=== PATIENT | female | born 1965 | race Caucasian/White ===

== ENCOUNTER 2017-10-14 14:00 | Emergency (ER) | payer OTHER ==
[2017-10-14 14:15] VITALS: BP 134/100; PULSE 95; O2SAT 98
[2017-10-14] MEDS ORDERED: BACIGUENT PACKET TP ONE (14:23)
[2017-10-14] MEDS ORDERED: TYLENOL 325 MG PO ONE (14:23)
[2017-10-14] MEDS ORDERED: Adacel Vial IM ONE ×2 (14:23→14:27)
[2017-10-14] MEDS ORDERED: TYLENOL 325 MG ONE (14:26)
[2017-10-14] MEDS ORDERED: BACIGUENT PACKET ONE (14:27)
--- NOTE | 2017-10-14 14:30 | ERPHSYRPT ---
- History of Present Illness Time Seen by Provider: 10/14/17 14:19 Source: patient Exam Limitations: no limitations Patient Subjective Stated Complaint: hit head on a shelf Triage Nursing Assessment: C/o laceration to top of scalp. pt has superficial laceration noted to right top of scalp. bleeding under control at this time Physician History: 51-year-old white female arrives with complaint of a head contusion and abrasion to her scalp since approximately 2:00 this afternoon. 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 She did not have any loss of consciousness she did feel nauseous for a short period of time she states she is feeling better now has some localized pain.. She denies any neck pain Past medical history leg swelling. Past surgical history includes tubal ligation D&C and LEEP procedure. Occurred: just prior to arrival Severity: mild Head Injury Location: parietal (top of the head anteriorly right side) Loss of Consciousness: no loss of consciousness Associated Symptoms: nausea (brief nausea), No vomiting, No abdominal pain, No shortness of breath, No heartburn, No diaphoresis, No cough, No chills, No chest pain, No fever, No headaches, No loss of appetite, No malaise, No rash, No syncope, No seizure, No weakness Allergies/Adverse Reactions: No Known Drug Allergies Allergy (Verified 03/10/16 06:40) Home Medications: No Reportable Medications [No Reported Medications] 05/02/13 [History] Hx Tetanus, Diphtheria Vaccination/Date Given: No Hx Influenza Vaccination/Date Given: Yes Hx Pneumococcal Vaccination/Date Given: No - Review of Systems Constitutional: No Fever, No Chills Eyes: No Symptoms, No Discharge, No Eye Pain, No Eye Redness, No Photophobia, No Tearing, No Vision Changes, No Double Vision, No Foreign Body Sensation Ears, Nose, & Throat: No Symptoms Respiratory: No Cough, No Dyspnea Cardiac: No Chest Pain, No Edema, No Syncope Abdominal/Gastrointestinal: No Abdominal Pain, No Nausea, No Vomiting, No Diarrhea Genitourinary Symptoms: No Dysuria Musculoskeletal: No Back Pain, No Neck Pain Skin: Other (1 cm abrasion scalp top of head right anterior) Neurological: Other (localized pain), No Dizziness, No Focal Weakness, No Gait Changes, No Headache, No Irritability, No Lethargy, No Paralysis, No Parasthesia , No Seizure, No Sensory Changes, No Speech Changes, No Tics, No Tremors, No Vertigo Psychological: No Symptoms Endocrine: No Symptoms All Other Systems: Reviewed and Negative - Past Medical History Pertinent Past Medical History: No Other Medical History: some swelling in legs - Past Surgical History Past Surgical History: Yes Neuro Surgical History: No Pertinent History Cardiac: No Pertinent History Respiratory: No Pertinent History Female Surgical History: Section, Tubal Ligation, Other Other Surgical History: LEEP and d&c - Social History Smoking Status: Former smoker How long have you smoked: 20yrs Exposure to second hand smoke: No Drug Use: none Patient Lives Alone: No - Female History Hx Now: No - Nursing Vital Signs Nursing Vital Signs: Initial Vital Signs Temperature 98.4 F 10/14/17 14:07 Pulse Rate 95 H 10/14/17 14:07 Respiratory Rate 18 10/14/17 14:07 Blood Pressure 134/100 10/14/17 14:07 O2 Sat by Pulse Oximetry 98 10/14/17 14:07 Pain Scale Pain Intensity 1 - [place] Coma Score Best Eye Response ([place]): (4) open spontaneously Best Verbal Response ([place]): (5) oriented Best Motor Response ([place]): (6) obeys commands [place] Total: 15 - Physical Exam General Appearance: mild distress, alert, other (well-developed female alert oriented x3 pleasant and cooperative to examination), No anxiety Head Injury: tenderness (localized tenderness top of scalp right anterior 1 cm abrasion overlying area) Eye Exam: bilateral eye: normal inspection, PERRL, EOMI ENT Exam: airway nml, No evidence of ENT injury, No dental injury Neck Exam: supple, full range of motion, other (no neck tenderness) Cardiovascular/Respiratory Exam: chest non-tender, normal breath sounds, regular rate/rhythm Gastrointestinal/Abdominal Exam: soft, non tender, no distention Back Exam: normal inspection, No vertebral tenderness Extremity Exam: non-tender, normal range of motion, normal inspection Mental Status Exam: alert, 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, 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 Exam: normal hearing, normal speech, PERRL, No abnormal eye position, No abnormal gag reflex, No abnormal pupil position, No abnormal speech, No facial asymmetry, No facial droop, No facial paresthesias, No facial weakness, No gaze palsy, No hearing deficit (R), No hearing deficit (L) Coordination/Gait Exam: normal finger to nose, normal gait, normal cerebellar function (continue finger noted finger to nose.), No ABN nose to finger (R), No ABN nose to finger (L) Motor/Sensory Exam: no motor deficit, no sensory deficit, CN II-XII intact DTR Exam: ankle (R): 2+, ankle (L): 2+ Skin Exam: normal color, warm, dry, No rash SpO2 Interpretation: normal (98%) SpO2: 98 Oxygen Delivery: Room Air - Course Nursing assessment & vital signs reviewed: Yes Ordered Tests: Active Orders 24 hr Category Date Time Status Wound Care STAT Care 10/14/17 14:23 Active - Progress Progress: improved Progress Note: 10/14/17 14:30 51-year-old white female arrives with complaint of hitting her head on the shelf and radiology 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 Patient has an abrasion which is 1 cm to the top of her head right anterior parietal region. She has not had any loss of consciousness she had brief nausea prior to arrival which has resolved. She has a normal neurologic examination. Area is cleansed by the patient's nurse bacitracin is applied patient was given Tylenol for pain. Patient's DTaP was updated. Patient will be released to follow-up with her company physician. - Departure Time of Disposition: 14:31 Departure Disposition: Home Clinical Impression: Head contusion Qualifiers: Encounter type: initial encounter Contusion of head detail: unspecified part of head Qualified Code(s): S00.93XA - Contusion of unspecified part of head, initial encounter Scalp abrasion Qualifiers: Encounter type: initial encounter Qualified Code(s): S00.01XA - Abrasion of scalp, initial encounter Condition: Fair Critical Care Time: No Referrals: NURIA MARISCAL MD [Primary Care Provider] - Instructions: Closed Head Injury (DC) Additional Instructions: Return home. Tylenol every 4 hours as needed for pain. Bacitracin to abraded area until healed. Follow-up with your company physician. Return for acute distress or for severe symptoms.
== END 2017-10-14 14:43 | disposition home or self-care (01) ==
LOC: ED 14:00
DX: S00.93XA Contusion of unspecified part of head, initial encounter (principal); S00.01XA Abrasion of scalp, initial encounter; W22.09XA Striking against other stationary object, initial encounter; Y92.238 Other place in hospital as the place of occurrence of the external cause; Y99.0 Civilian activity done for income or pay
CPT/HCPCS: 90471; 90715; 99284; A9270-GY